=== PATIENT | female | born 1960 | race Caucasian/White ===

== ENCOUNTER 2020-10-30 21:46 | Inpatient (IN) | payer OTHER ==
[2020-10-30] VITALS (32 sets, daily range): BP systolic 140–159; BP diastolic 94–118; PULSE 128–148; O2SAT 98–100
[~2020-10-30] VITALS: Ht 162.6 cm; Wt 87.2 kg
--- NOTE | 2020-10-30 22:25 | NUR ---
Arrived to the unit via EMS. Patient alert and oriented upon arrival. Able to self-transfer over to ICU bed independently but did become dyspneic and and only able to speak in short sentences for a few minutes afterwards. 02 100% on 2L. Hospitalist at bedside to assess patient. Patient able to answer all questions appropriately.
[2020-10-30] MEDS ORDERED: COZAAR100 MG PO (23:16)
[2020-10-30] MEDS ORDERED: ALDACTONE 25MG25 M1 PO (23:16)
[2020-10-30] MEDS ORDERED: APRESOLINE50 MG PO (23:16)
--- NOTE | 2020-10-30 23:20 | NUR ---
Transported to CT via ICU bed. Tolerated well except with a few dyspneic episodes after tranfering on and off of CT cot.
[2020-10-30 23:37] LABS: C-REACTIVE PROTEIN 0.9 mg/dL (0.0-0.9)
[2020-10-30 23:46] LABS: TROPONIN-I < 0.012 ng/mL (0.000-0.035)
[2020-10-31] VITALS (586 sets, daily range): BP systolic 93–150; BP diastolic 69–121; PULSE 119–139; TEMP 97.3–98; O2SAT 79–100
--- NOTE | 2020-10-31 01:18 | NUR ---
HR continues to be 130's to 140's afib despite being almost maxed on esmolol drip. Dr. Gomez notified; instructed to give 0.25 mg of Digoxin once now.
--- NOTE | 2020-10-31 03:36 | NUR ---
Patient arrived to the unit via EMS with Esmolol drip rate at 50 mcg/kg/min.
--- NOTE | 2020-10-31 04:00 | NUR ---
HR ranging 110-130's and briefly into the 140's. Patient reports feeling "better" and BP has been stable. Dr. Gomez notified; no further orders given at this time; She will see patient in the morning.
[2020-10-31] MEDS ORDERED: ONE-A-DAY ESSE1 EACH PO (04:09)
[2020-10-31] MEDS ORDERED: OMEGA-3 1000 MG1 CAP (04:10)
[2020-10-31] MEDS ORDERED: VITAMIN D31000 I1 PO (04:10)
[2020-10-31] MEDS ORDERED: GARLIC100 MG (04:11)
[2020-10-31 05:20] LABS: BASO % 0.6 % (0.0-2.0); EOS % 0.3 % (0-4.0); GRAN # 4.9 (1.4-6.5); GRAN % 75.4 % (42.2-75.2); HEMATOCRIT 38.3 % (37.0-47.0); HEMOGLOBIN 12.7 g/dl (12.5-16.0); LYMPH # 1.1 (1.2-3.4); LYMPH % 16.2 % (20.0-51.0); MEAN CELL VOLUME 96 fl (80.0-100.0); MEAN CORPUSCULAR HEMOGLOBIN 32 pg (27.0-31.0); MEAN CORPUSCULAR HGB CONC 33 g/dl (33.0-37.0); MEAN PLATELET VOLUME 12.4 fl (7.4-10.4); MONO # 0.5 (0.1-0.6); PLATELET COUNT 194 K/mm3 (130-400); RED BLOOD COUNT 3.99 M/mm3 (4.10-5.30)
[2020-10-31 05:22] LABS: MUCOUS Present /lpf; PH 6 (5-8); SQUAMOUS EPITHELIAL None Seen /hpf; URINE APPEARANCE Clear; URINE BACTERIA None Seen /hpf; URINE BILIRUBIN Negative (NEGATIVE); URINE BLOOD 1+ (NEGATIVE); URINE COLOR Straw; URINE GLUCOSE Negative (NEGATIVE); URINE KETONE Negative (NEGATIVE); URINE LEUKOCYTE ESTERASE Negative (NEGATIVE); URINE NITRATE Negative (NEGATIVE); URINE PROTEIN(semi-quant) Negative (NEGATIVE); URINE UROBILINOGEN Negative (NEGATIVE)
[2020-10-31 05:33] LABS: ANION GAP 10 mmol/L (7-16); BLOOD UREA NITROGEN 21 mg/dL (7-17); CALCIUM 8.6 mg/dL (8.4-10.2); CARBON DIOXIDE 24 mmol/L (22-30); CHLORIDE 106 mmol/L (98-107); CHOLESTEROL 175 mg/dL (120-200); CHOLESTEROL RISK RATIO 4.8; CREATININE, serum 0.88 (0.52-1.25); GLUCOSE 104 mg/dL (74-106); HDL CHOLESTEROL 36 mg/dL; LDL CHOLESTEROL 121 mg/dL; POTASSIUM 3.8 mmol/L (3.4-5.0); SODIUM 139 mmol/L (137-145); TRIGLYCERIDE 90 mg/dL
[2020-10-31 05:50] LABS: TROPONIN-I 6 HR POST INITIAL < 0.012 ng/mL (0.000-0.034)
--- NOTE | 2020-10-31 07:00 | NUR ---
RECEIVED REPORT FORM ANMOL VICENTE. PT RESTING EASILY ON 3L VIA NC. HR NOTED AFIB 100-140s. ALL OTHER VSS. CALL LIGHT WITHIN REACH. FC PATENT AND DRAINING TO GRAVITY. PT DENIES ANY CP/PRESSURE AT THIS TIME.
[2020-10-31 08:46] LABS: COLLECTION METHOD CLEAN CATCH
--- NOTE | 2020-10-31 08:50 | NUR ---
DR GONZALES AT BEDSIDE FOR ASSESSMENT. PHYSICIAN STATES IS GOING TO READ ECHO AND THEN WILL LET RN KNOW POC FOR EITHER CATH OR LIZETH/CARDIOVERSION. PT AWARE OF POTENTIAL POCs.
--- NOTE | 2020-10-31 09:22 | NUR ---
SHUBHAM met with the patient to discuss discharge plan. The patient lives in [place] with her , Drew (ph#[phone]). She reports independence with ADLs and does not have any DME. The patient receives primary care at [facility] and she also receives her medications from there. The patient is listed as self pay. The patient states that she does have insurance through [employer]. The patient provided SHUBHAM with a copy of her ID card. SHUBHAM notified Lena with [employer] of the patient's ID number. The patient does not have a DPOA-HC, but she was interested in obtaining a form. SHUBHAM provided. The patient plans to return home with her upon discharge. SHUBHAM contacted and reviewed d/c plan with the patient's , Drew. Drew reports no concerns with the patient returning back home upon discharge. SW to follow as needed.
[2020-10-31 09:27] LABS: POTASSIUM 4.1 mmol/L (3.4-5.0)
--- NOTE | 2020-10-31 09:35 | NUR ---
DR GONZALES BACK TO BEDSIDE DISCUSSING POC WITH PT AND FAMILY ON THE PHONE. PHYSICIAN STATES PT WILL HAVE A HEART CATH WITH LIZETH/CARDIOVERSION TOMORROW IF NECESSARY AND WILL TRY AND RATE CONTROL UNTIL THEN. NEW ORDERS RECEIVED.
--- NOTE | 2020-10-31 17:47 | NUR ---
NOTIFIED DR GONZALES ABOUT PT'S HR IS STAYING CONSISTENTLY 120-160s AND THE PO DIGOXIN GIVEN EARLIER ONLY LASTED ABOUT [address] ASKS BP 91/76. PHYSICIAN STATES AT 6 HOURS AFTER THE LAST DOSE OF DIGOXIN, CAN REPEAT DOSE X1 AND WILL HOPEFULLY HOLD PT D/T LOW EF UNTIL MORNING WHEN SHE GETS HER CATHETERIZATION.
--- NOTE | 2020-10-31 19:30 | NUR ---
Received report from ANMOL Starr. Patient resting quietly in recliner watching television. HR 120-140s, in afib. BPs 90s/70s. Other vitals within normal limits. Patient reports dull chest pain rated 4/10; denies needing PRN pain medication for relief. No further needs noted at this time.
--- NOTE | 2020-10-31 20:07 | NUR ---
Contacted Dr. Victoria regarding patient's HR ranging 120-150s in afib. Patient reports mild aching chest pain, rated 4/10. Received orders to administer an additional dose of 0.25mg PO digoxin. Morphine 2mg Q 2HR IV PRN ordered for pain management. To notify again if HR sustains 140 or greater.
[2020-10-31 20:18] LABS: PARTIAL THROMBOPLASTIN TIME 31.3 SECONDS (26.0-37.0)
[2020-11-01] VITALS (613 sets, daily range): BP systolic 99–137; BP diastolic 66–99; PULSE 14–140; TEMP 97.3–98; O2SAT 46–100
[2020-11-01 03:16] LABS: BASO % 0.6 % (0.0-2.0); EOS # 0.1 (0.0-0.7); GRAN # 5.8 (1.4-6.5); GRAN % 81.8 % (42.2-75.2); HEMATOCRIT 38.6 % (37.0-47.0); HEMOGLOBIN 12.9 g/dl (12.5-16.0); LYMPH # 0.8 (1.2-3.4); LYMPH % 10.7 % (20.0-51.0); MEAN CELL VOLUME 96 fl (80.0-100.0); MEAN CORPUSCULAR HEMOGLOBIN 32 pg (27.0-31.0); MEAN CORPUSCULAR HGB CONC 33 g/dl (33.0-37.0); MEAN PLATELET VOLUME 12.2 fl (7.4-10.4); MONO # 0.4 (0.1-0.6); MONO % 5.5 % (1.7-9.3); PLATELET COUNT 197 K/mm3 (130-400); RED BLOOD COUNT 4.01 M/mm3 (4.10-5.30); REDCELL DISTRIBUTION WIDTH-CV 13.9 % (11.5-14.5)
[2020-11-01 03:25] LABS: INR 1.2 (0.8-3.0)
[2020-11-01 03:27] LABS: ALBUMIN 3.4 gm/dL (3.5-5.0); BILIRUBIN,TOTAL 0.3 mg/dL (0.0-1.0); CALCIUM 8.3 mg/dL (8.4-10.2); CREATININE, serum 1.12 (0.52-1.25); POTASSIUM 3.7 mmol/L (3.4-5.0); TOTAL PROTEIN 5.8 gm/dL (6.4-8.2)
[2020-11-01 03:28] LABS: PARTIAL THROMBOPLASTIN TIME 81.7 SECONDS (26.0-37.0)
--- NOTE | 2020-11-01 07:35 | NUR ---
Report given to ANMOL Starr.
--- NOTE | 2020-11-01 07:35 | NUR ---
RECEIVED REPORT FROM ANMOL LYNN. PT SLEEPING. VSS. HR NOTED AFIB 110-140s. FC PATENT AND DRAINING TO GRAVITY. SEE GTT FLOWSHEET. CALL LIGHT WITHIN REACH. PT ON 1L VIA MA.
--- NOTE | 2020-11-01 10:56 | NUR ---
DR RILEY AT BEDSIDE FOR ASSESSMENT. NEW ORDERS RECEIVED. STILL TO PERFORM CATH PROCEDURE WITH POSSIBLE CARIOVERSION IF NECESSARY AT THAT TIME TODAY.
--- NOTE | 2020-11-01 13:18 | NUR ---
SEE MERGE DOCUMENTATION FOR MEDICAITON ADMINISTRATION TIMES AND INTRA/POST PROCEDURE SEDATION ASSESSMENTS. HEPARIN GTT STOPPED PRIOR TO PT ARRIVAL TO HEAD COACH PER MD REQUEST. PLAN FOR LHC FIRST, THEN LIZETH/CV.
--- NOTE | 2020-11-01 14:10 | NUR ---
PT TO ADOPTION COORDINATOR WITH ANMOL PAUL AT 1214. REPORT RECIEVED FROM ANMOL PAUL AT THIS TIME. AWAITING ARRIVAL OF PT BACK FROM ADOPTION COORDINATOR.
--- NOTE | 2020-11-01 14:23 | NUR ---
PT ARRIVES VIA STRETCHER BACK FROM POLITICAL REPORTER WITH ANMOL PAUL. VSS. HR 43-56. PER REPORT, DR RILEY IS AWARE AND IS FINE WITH HR THAT LOW. TR BAND IN PLACE, PER REPORT, NO AIR HAS BEEN RELEASED AT THIS TIME. PT AAOX4. CALL LIGHT WITHIN REACH. FC PATENT AND DRAINING TO GRAVITY. NOTED PT'S COLORING TO HAVE IMPROVED AND IS NO LONGER PALE AND DIAPHORETIC AT THIS TIME. PT DENIES ANY CP/PRESSURE. SEE GTT FLOWSHEET FOR CHANGES MADE FROM POLITICAL REPORTER TO RETURNING BACK TO ICU.
--- NOTE | 2020-11-01 19:30 | NUR ---
Received report from ANMOL Starr. Pumps and lines confirmed at bedside. Patient is resting quietly in bed. All vitals within normal limits. She denies any pain or discomfort. Right radial access site is clean, dry, and intact, and is soft and without bruising or hematoma formation. All pulses palpable. No further needs noted at this time.
[2020-11-02] VITALS (560 sets, daily range): BP systolic 97–155; BP diastolic 73–98; PULSE 47–66; TEMP 97.3–98.6; O2SAT 86–100
--- NOTE | 2020-11-02 07:20 | NUR ---
Report given to ANMOL Navarro.
[2020-11-02 07:45] LABS: BASO % 0.4 % (0.0-2.0); EOS # 0.1 (0.0-0.7); EOS % 1.4 % (0-4.0); GRAN % 70.5 % (42.2-75.2); HEMATOCRIT 38.5 % (37.0-47.0); HEMOGLOBIN 12.7 g/dl (12.5-16.0); LYMPH % 18.3 % (20.0-51.0); MEAN CELL VOLUME 98 fl (80.0-100.0); MEAN CORPUSCULAR HEMOGLOBIN 32 pg (27.0-31.0); MEAN CORPUSCULAR HGB CONC 33 g/dl (33.0-37.0); MEAN PLATELET VOLUME 12.2 fl (7.4-10.4); MONO # 0.5 (0.1-0.6); MONO % 9.2 % (1.7-9.3); PLATELET COUNT 187 K/mm3 (130-400); RED BLOOD COUNT 3.93 M/mm3 (4.10-5.30); REDCELL DISTRIBUTION WIDTH-CV 14.2 % (11.5-14.5)
[2020-11-02 08:00] LABS: CALCIUM 8.5 mg/dL (8.4-10.2); CREATININE, serum 0.9 (0.52-1.25); POTASSIUM 3.3 mmol/L (3.4-5.0)
--- NOTE | 2020-11-02 13:30 | NUR ---
Indwelling sainz removed per MD orders. 8ML fluid removed from balloon, no issues. Patient educated on using call moore for help ambulating to bathroom. Will monitor.
--- NOTE | 2020-11-02 16:00 | NUR ---
Bed bath provided to patient. made aware of new room number and visiting hours. All questions answered.
--- NOTE | 2020-11-02 16:45 | NUR ---
Report called to Medical RN, all questions answered. Patient to be transfered via wheel chair to floor.
--- NOTE | 2020-11-02 18:15 | NUR ---
Patient brought up to 353 via wheel chair all belongings in hand. RN notified that transport was late due to emergency in unit. RN at bedside. Patient placed sitting up in recliner.
--- NOTE | 2020-11-02 18:25 | NUR ---
Patient arrived to the floor at this time. She is alert, oriented, and stable at this time. Lung sounds are clear. Heart sounds normal, rate irregular but no tachicardia present. Mild edema in BLE, +1. Right radial site is CD&I with bandaid, site is sensetive to touch tough. No SOB at this time. Patient is aware that we are waiting for her to urinate after having her sainz removed. She questioned whether our help was necessary. I requested that she call for a stand by assist due to new heart medications and that we have not witnessed her ambulate, she agreed and understood. Pulses are all intact. Only request was juice at this time, this was provided. Patient denies other needs. Will continue to monitor. Call light is in reach.
--- NOTE | 2020-11-02 20:45 | NUR ---
Sitting in recliner. Assessment complete. Lungs clear. Heart sounds irregular. Bowels active x4. Pulses present throughout. Bilateral lower extremity edema +1. INT right AC flushed without complications. Patient has erythema/pain/swelling/palpatable streak in left AC at a former INT site. Patient arm elevated and warm compress applied. Denies other needs at this time. Call light in reach.
--- NOTE | 2020-11-03 00:09 | NUR ---
Resting in bed. Denies needs. Call light in reach.
--- NOTE | 2020-11-03 01:39 | NUR ---
Up to restroom. Denies needs. Call light in reach.
[2020-11-03 03:03] VITALS: BP 126/74; PULSE 65; TEMP 98.7
--- NOTE | 2020-11-03 04:21 | NUR ---
Resting in bed. Denies needs. Call light in reach.
[2020-11-03 07:06] LABS: CALCIUM 8.4 mg/dL (8.4-10.2); CREATININE, serum 0.69 (0.52-1.25); POTASSIUM 3.3 mmol/L (3.4-5.0)
--- NOTE | 2020-11-03 07:14 | NUR ---
Report given to ANMOL Viera
[2020-11-03 08:10] VITALS: BP 123/67; PULSE 71; TEMP 97.9
--- NOTE | 2020-11-03 08:30 | NUR ---
Assessment complete. PAtient sitting up in recliner eating breakfast at this time. States that she feels good this morning. Minor discomfort in left AC area due to IV infiltration of unknown medication at previous hospital. This area is red, swollen, firm and achey to the patient, she does state that it has improved since overnight. Warm compress and elevation were used overnight. Right radial site is CD&I, less tender than it was yesterday. Otherwise no complaints of pain or discomfort. Patient remains independent in the room and is doing very well. No other needs were expressed at this time. CAll light is in reach.
--- NOTE | 2020-11-03 10:30 | NUR ---
SW met with patient's RN. Patient is on second day of PO amiodarone. Patient will not discharge today 11/03. There are no new needs at this time. Social work will continue to follow.
[2020-11-03 11:46] VITALS: BP 118/89; PULSE 62; TEMP 98.8
[2020-11-03 16:22] VITALS: BP 133/83; PULSE 62; TEMP 97.5
--- NOTE | 2020-11-03 17:31 | NUR ---
Patient has had an uneventful shift. Very minimal needs. Left arm remains red, puffy and warm from previous infiltration, wbc remains stable. Warm compress provided for relief. Otherwise patient is comfortable and aware of her POC. Will continue to monitor. Call light is in reach.
[2020-11-03 19:16] VITALS: BP 118/70; PULSE 61; TEMP 98.6
[2020-11-03 20:15] LABS: BASO % 0.4 % (0.0-2.0); EOS # 0.1 (0.0-0.7); EOS % 1.2 % (0-4.0); GRAN # 8.1 (1.4-6.5); HEMATOCRIT 42.8 % (37.0-47.0); HEMOGLOBIN 14.6 g/dl (12.5-16.0); LYMPH % 9.4 % (20.0-51.0); MEAN CELL VOLUME 95 fl (80.0-100.0); MEAN CORPUSCULAR HEMOGLOBIN 32 pg (27.0-31.0); MEAN CORPUSCULAR HGB CONC 34 g/dl (33.0-37.0); MONO # 0.9 (0.1-0.6); MONO % 8.5 % (1.7-9.3); PLATELET COUNT 211 K/mm3 (130-400); RED BLOOD COUNT 4.53 M/mm3 (4.10-5.30)
--- NOTE | 2020-11-03 20:15 | NUR ---
Patient A/Ox4. Patient sitting up in the chair and resting upon shift start. Noticed left upper arm red, swollen, and pain to touch. Patient reported left arm IV was infiltrated on last Wednesday when she was in ICU and got red and swollen since then. Called Hospitalist DIOGENES Hodge to assess left arm at 19:40 pm. DIOGENES Hodge came and assessed patient's left arm. Gave order for blood draw for CBC, blood culture, and Doxycycline. Doxycyxline PO given. All scheduled meds given at this time. Right AC IV site has no s/s of complications. Call light within reach. Patient denies further needs at this time.
[2020-11-03 23:39] VITALS: BP 139/73; PULSE 59; TEMP 98.5
[2020-11-04 04:39] VITALS: BP 140/78; PULSE 53; TEMP 98.2
[2020-11-04 06:50] LABS: CALCIUM 8.9 mg/dL (8.4-10.2); CREATININE, serum 0.82 (0.52-1.25); POTASSIUM 3.9 mmol/L (3.4-5.0)
--- NOTE | 2020-11-04 07:00 | NUR ---
Report received form ANMOL Bauman. Pt in bed resting, denies needs will continue to monitor.
[2020-11-04 08:00] VITALS: BP 113/88; PULSE 66; TEMP 97.7
[2020-11-04] MEDS ORDERED: ELIQUIS 5MG PO (11:13)
[2020-11-04] MEDS ORDERED: DOXYCYCLINE 10100 MG PO (11:13)
[2020-11-04] MEDS ORDERED: CORDARONE200 MG/TAB PO (11:20)
[2020-11-04] MEDS ORDERED: COREG 6.256.25 MG/TA PO (11:20)
[2020-11-04] MEDS ORDERED: LASIX 40MG TABL40 MG PO (11:21)
[2020-11-04] MEDS ORDERED: ENTRESTO 24 MG1 EACH PO (11:21)
--- NOTE | 2020-11-04 11:28 | NUR ---
Assessment charted. Notified by US that probable DVT to L cephalic, notified Dr. Carson. Pt has sensitivity to LUE. REsting in bed or chair, up ad heavenly in room. INT to RFA is also chording and appears red, will remove. Will continue to monitor.
[2020-11-04 12:46] VITALS: BP 102/70; PULSE 54; TEMP 97.4
--- NOTE | 2020-11-04 12:48 | NUR ---
First visit from the customer service receptionist. No needs right now.
--- NOTE | 2020-11-04 14:03 | NUR ---
DIscharge packet completed with pt at this time. PT received dishcarge packet, f/u appts, new scripts sent to pharmacy and reviewed recommendations for care of clot in LUE. INT dc'd, tip intact to RFA. PT changing clothes, en route here, will leave via w/c with all belongings and will be escorted out by medical staff. Criteria met.
== END 2020-11-04 14:30 | disposition home or self-care (01) | DRG 286 ==
LOC: ICU 21:46 → MEDICAL 11-02 19:19
PROVIDERS: Hospitalist; Internal Medicine Cardiovascular Disease; Nurse Practitioner Family; Student in an Organized Health Care Education/Training Program; ADMIT Student in an Organized Health Care Education/Training Program
PROC: 4A023N7 Measurement of Cardiac Sampling and Pressure, Left Heart, Percutaneous Approach (ICD-10-PCS; principal; 2020-11-01)
PROC: B2111ZZ Fluoroscopy of Multiple Coronary Arteries using Low Osmolar Contrast (ICD-10-PCS; 2020-11-01)
PROC: 5A2204Z Restoration of Cardiac Rhythm, Single (ICD-10-PCS; 2020-11-01)
DX: I48.91 Unspecified atrial fibrillation (principal); I50.23 Acute on chronic systolic (congestive) heart failure; I82.612 Acute embolism and thrombosis of superficial veins of left upper extremity; L03.114 Cellulitis of left upper limb; I16.1 Hypertensive emergency; I11.0 Hypertensive heart disease with heart failure; E78.5 Hyperlipidemia, unspecified; E87.6 Hypokalemia; D25.9 Leiomyoma of uterus, unspecified; E83.42 Hypomagnesemia; N83.201 Unspecified ovarian cyst, right side; N32.3 Diverticulum of bladder; R74.01 Elevation of levels of liver transaminase levels; Q63.1 Lobulated, fused and horseshoe kidney; Z86.718 Personal history of other venous thrombosis and embolism; Z87.442 Personal history of urinary calculi; Z88.0 Allergy status to penicillin; Z88.1 Allergy status to other antibiotic agents; Z87.891 Personal history of nicotine dependence
CPT/HCPCS: 99223-AI; 99231-AI; 99232-AI; 99239; J0282; J1160; J1644; J1650; J1940; J2250; J2270; J2550; J2704; J3010; J3475; J3480; J7060; Q9967

== ENCOUNTER 2022-04-27 09:19 | Inpatient (IN) | payer OTHER ==
[~2022-04-27] VITALS: Ht 160 cm; Wt 97.7 kg
[~2022-04-27 09:19] MED LIST: ALDACTONE 25MG25 M1 PO; APRESOLINE50 MG PO; CORDARONE200 MG/TAB PO; COREG 6.256.25 MG/TA PO; COZAAR100 MG PO; DOXYCYCLINE 10100 MG PO; ELIQUIS 5MG PO; ENTRESTO 24 MG1 EACH PO; GARLIC100 MG; LASIX 40MG TABL40 MG PO; OMEGA-3 1000 MG1 CAP; ONE-A-DAY ESSE1 EACH PO; VITAMIN D31000 I1 PO
[2022-04-27 09:42] LABS: BASO # 0.1 K/mm3 (0.0-0.2); BASO % 1.1 % (0.0-2.0); EOS # 0.1 K/mm3 (0.0-0.7); EOS % 1.6 % (0.0-4.0); GRAN % 72.2 % (42.2-75.2); HEMATOCRIT 41.6 % (37.0-47.0); HEMOGLOBIN 14.4 g/dl (12.5-16.0); LYMPH # 1.2 K/mm3 (1.2-3.4); LYMPH % 17.5 % (20.0-51.0); MEAN CELL VOLUME 93 fl (80.0-100.0); MEAN CORPUSCULAR HEMOGLOBIN 32 pg (27-31); MEAN CORPUSCULAR HGB CONC 35 g/dl (33.0-37.0); MEAN PLATELET VOLUME 11.8 fl (7.4-10.4); MONO # 0.5 K/mm3 (0.1-0.6); MONO % 7.3 % (1.7-9.3); PLATELET COUNT 228 K/mm3 (130-400); RED BLOOD COUNT 4.47 M/mm3 (4.10-5.30); REDCELL DISTRIBUTION WIDTH-CV 13.7 % (11.5-14.5)
[2022-04-27] MEDS ORDERED: COZAAR100 MG (09:52)
[2022-04-27 09:54] LABS: INR 1.6 (0.8-3.0); PROTHROMBIN TIME 18.1 SECONDS (9.7-12.8)
[2022-04-27 09:57] LABS: PARTIAL THROMBOPLASTIN TIME 35.2 SECONDS (26.0-37.0)
[2022-04-27 10:08] LABS: ALANINE AMINOTRANSFERASE 238 U/L (0-55); ALBUMIN 3.7 gm/dL (3.4-4.8); ALKALINE PHOSPHATASE 176 U/L (40-150); ANION GAP 13 mmol/L (7-16); AST,SGOT 86 U/L (5-34); BILIRUBIN,TOTAL 1.2 mg/dL (0.2-1.2); BLOOD UREA NITROGEN 21 mg/dL (10-20); CALCIUM 9.1 mg/dL (8.4-10.2); CARBON DIOXIDE 20 mmol/L (23-31); CHLORIDE 108 mmol/L (98-107); CREATININE, serum 0.83 mg/dL (0.57-1.11); GLUCOSE 127 mg/dL (70-99); POTASSIUM 3.9 mmol/L (3.5-4.5); SODIUM 141 mmol/L (136-145); TOTAL PROTEIN 6.9 gm/dL (6.2-8.1)
[2022-04-27 10:19] LABS: TROPONIN-I < 0.010 ng/mL (0.00-0.033)
[2022-04-27 13:52] VITALS: BP 136/108; PULSE 52; TEMP 98.2
[2022-04-27 15:43] VITALS: BP 117/78; PULSE 54; TEMP 98
--- NOTE | 2022-04-27 15:52 | NUR ---
Opinion Polls Survey Worker met with patient to discuss discharge planning. Patient lives in [place] with her , Drew (ph#[phone]) and goes to [facility] for primary care and medications. Patient does not use DME and is independent with ADLS. Patient does not have Advance Directives and is not interested in completing DPOA-HC at this time. Patient plans to return home at time of discharge. Discharge Plan: Home
--- NOTE | 2022-04-27 18:00 | NUR ---
Patient admitted to room 318 from ER. Pharmacy, allergies, and medications reviewed. Admission paperwork completed. VSS. Patient A&O. Patient denies any pain, discomfort, SOA, or further needs at this time. Call light in reach. DIOGENES Hodge informed that patient self caths at home, this RN was instructed that she is ok to continue to do that on the floor. Nursing order placed.
[2022-04-27 20:59] VITALS: BP 137/106; PULSE 74; TEMP 97.6
--- NOTE | 2022-04-27 22:47 | NUR ---
PT'S QTC INCREASED TO 527. NOTIFIED DR. RILEY OF THE PT'S QTC AND CURRENT HR. PT WAS RUNNING IN THE UPPER 50'S AND 60'S, NSR. PER DR. RILEY'S VERBAL PHONE READBACK ORDER I WAS GIVEN A VERBAL ORDER TO HOLD THE ORDERED PO SOTALOL FOR TONIGHT. ORDERS FOLLOWED PER PROVIDER, NO OTHER CHANGES AT THIS TIME.
[2022-04-28] VITALS (7 sets, daily range): BP systolic 127–141; BP diastolic 84–97; PULSE 68–102; TEMP 97.4–98.2
--- NOTE | 2022-04-28 03:10 | NUR ---
Pt alert and oriented. Follows commands. Steady gate, independent in room. Denies chest pain/SOB/acute pain at this time. Vital signs stable. On room air. HR between sinus rythym and sinus go. Afebrile. Pt's last QTC was 527. Notified Dr. Huerta of the result, and the PO sotolol for 2100 was held. Pt tolerating PO. quality assurance monitor final on. Pt states she self-catheterizes and brought her own supplies. DIOGENES Hodge was made aware by day shift nurse and was okay with pt self-catheterizing herself. Nursing notification was made. Shift assessment performed. Medications administered per orders and education provided. No significant skin issues noted. Pt does not report any questions at this time. Bed low and locked, call moore within reach. No concerns at this time.
--- NOTE | 2022-04-28 07:32 | NUR ---
NO ADVERSE EVENTS OVERNIGHT. PT ALERT AND ORIENTED. DENIES CHEST PAIN/SOB. HR IN THE 60'S-70'S. VS STABLE. PT CATHETERIZES SELF, NURSING ORDER IN PLACE. BED LOW AND LOCKED, CALL RAYMOND WITHIN REACH. NO CONCERNS AT THIS TIME.
--- NOTE | 2022-04-28 08:00 | NUR ---
Pt sitting down. Shift assessment completed. A&O x4. VSS. Pt denies pain, N/V, SOB, or any other disconfort. Right hand INT CDI, no edema or redness. Pt requested to ambulate in the hallway. Call light within reach.
--- NOTE | 2022-04-28 10:07 | NUR ---
Initial visit; Patient thanked Insurance Sales Representative for looking in on her and offering prayer and God's blessings. Radha being a smiling, happy person caused Insurance Sales Representative to comment on how her wonderful outlook will continue to help her heal. She smiled and thanked Insurance Sales Representative.
--- NOTE | 2022-04-28 12:10 | NUR ---
CHF- Reviewed education for chronic heart failure. Reviewed [facility] CHF educational booklet, with emphasis on daily weights, obtaining dry weights, monitoring for edema, shortness of breath, decreased endurance, or feeling full when eating less. Reviewed importance of medication compliance with all prescribed medications and when to call your medical provider (CHF Zones). Patient verbalized understanding. Patient s EF is 30-35% which does qualify for Cardiac Rehab. Referral was declined by pt a this time - she reports exercising at [employer] daily. CR number given if questions arrise - pt verbalized understanding.
--- NOTE | 2022-04-28 19:11 | NUR ---
Pt sitting down in her bed. A&O x4. VSS Follow up education on her medication. Pt expressed feeling itchiness on her chest due to telemetry leads. Pt denied any other concerns. Pt independent, ambulated on hallway a few times during the day. INT on right hand CDI no redness or edema. Tele on. call light within reach.
--- NOTE | 2022-04-28 22:52 | NUR ---
Pt alert and oriented. Follows commands, independent in room, steady gait. Pt self catheterizes, approved by provider. Nursing notification in place. Pt denies chest pain/SOB. awake overnight monitor on. Pt ambulated out in hallway this evening. Pt continuing with ordered sotalol this evening. Shift assessment performed. Medications administered per orders and education provided. VS stable. No significant skin issues noted. On room air. Tolerating PO. Pt does not report any questions at this time. Bed low and locked, call moore within reach. No concerns at this time.
[2022-04-29 03:54] VITALS: BP 138/86; PULSE 76; TEMP 97.9
--- NOTE | 2022-04-29 05:21 | NUR ---
No adverse events overnight. Pt alert and oriented. Independent in the room. Self catheterizes. VS stable. HR running between sinus rythym and sinus go. Pt denies chest pain/SOB. Tolerating PO. classroom monitor on. Bed low and locked, call moore within reach. No new concerns at this time.
[2022-04-29 06:40] LABS: BASO % 0.9 % (0.0-2.0); EOS # 0.2 K/mm3 (0.0-0.7); EOS % 3.7 % (0.0-4.0); GRAN # 2.7 K/mm3 (1.4-6.5); GRAN % 59.1 % (42.2-75.2); HEMATOCRIT 39.4 % (37.0-47.0); HEMOGLOBIN 12.7 g/dl (12.5-16.0); LYMPH # 1.2 K/mm3 (1.2-3.4); LYMPH % 25.3 % (20.0-51.0); MEAN CORPUSCULAR HEMOGLOBIN 32 pg (27-31); MEAN CORPUSCULAR HGB CONC 32 g/dl (33.0-37.0); MEAN PLATELET VOLUME 12.7 fl (7.4-10.4); MONO # 0.5 K/mm3 (0.1-0.6); MONO % 10.8 % (1.7-9.3); PLATELET COUNT 150 K/mm3 (130-400); RED BLOOD COUNT 3.97 M/mm3 (4.10-5.30); REDCELL DISTRIBUTION WIDTH-CV 14.1 % (11.5-14.5)
[2022-04-29 06:46] LABS: MEAN CELL VOLUME 99 fl (80.0-100.0)
[2022-04-29 07:06] LABS: ALBUMIN 3.2 gm/dL (3.4-4.8); BILIRUBIN,TOTAL 0.6 mg/dL (0.2-1.2); CALCIUM 8.5 mg/dL (8.4-10.2); CREATININE, serum 0.68 mg/dL (0.57-1.11); POTASSIUM 3.6 mmol/L (3.5-4.5); TOTAL PROTEIN 5.9 gm/dL (6.2-8.1)
[2022-04-29 07:14] VITALS: BP 132/94; PULSE 64; TEMP 97.8
--- NOTE | 2022-04-29 09:20 | NUR ---
Scheduled medications given. Shift assessment preformed. VSS. Julio A&O. Patient c/o a headache rated a 2/10, but denies the need for interventions at this time. Patient denies any further pain, discomfort, SOA, or further needs at this time. Call light in reach.
[2022-04-29 11:31] VITALS: BP 145/111; PULSE 43; TEMP 96.7
[2022-04-29 15:04] VITALS: BP 134/102; PULSE 56; TEMP 97.6
--- NOTE | 2022-04-29 18:00 | NUR ---
Provider contacted about elevated bp. Orders placed. Medications administered per orders. Remainder of vitals stable. Patient A&O. Patient denies any pain, discomfort, SOA, or further needs at this time. Call light in reach.
[2022-04-29 20:59] VITALS: BP 143/81; PULSE 67; TEMP 97.4
--- NOTE | 2022-04-29 23:30 | NUR ---
Pt alert and oriented. Follows commands. Independent in the room. Self catheterizes. Sotalol continued per orders. surveillance monitor on. VS stable. HR running between sinus rythym and sinus go. On room air. Shift assessment performed. Medications administered per orders and education provided. No significant skin issues noted. Denies chest pain/SOB. Denies acute pain. Steady gait. Bed low and locked, call moore within reach. Pt does not report any questions at this time. No no concerns at this time.
[2022-04-30 00:22] VITALS: BP 116/81; PULSE 66; TEMP 97.6
[2022-04-30 04:27] VITALS: BP 122/74; PULSE 57; TEMP 97.7
--- NOTE | 2022-04-30 05:25 | NUR ---
No adverse events overnight. Pt alert and oriented. Denies chest pain/SOB at this time. Independent in the room. VS stable. On room air. night monitor on. HR running between normal sinus and sinus go. Sotalol administered per orders. Bed low and locked, call moore within reach. No new concerns at this time.
[2022-04-30 06:49] LABS: BASO # 0.1 K/mm3 (0.0-0.2); BASO % 1.2 % (0.0-2.0); EOS # 0.2 K/mm3 (0.0-0.7); EOS % 3.5 % (0.0-4.0); GRAN # 3.1 K/mm3 (1.4-6.5); GRAN % 60.3 % (42.2-75.2); HEMATOCRIT 40.3 % (37.0-47.0); HEMOGLOBIN 13.7 g/dl (12.5-16.0); LYMPH # 1.2 K/mm3 (1.2-3.4); LYMPH % 22.7 % (20.0-51.0); MEAN CORPUSCULAR HEMOGLOBIN 32 pg (27-31); MEAN CORPUSCULAR HGB CONC 34 g/dl (33.0-37.0); MEAN PLATELET VOLUME 12.2 fl (7.4-10.4); MONO # 0.6 K/mm3 (0.1-0.6); MONO % 12.1 % (1.7-9.3); PLATELET COUNT 210 K/mm3 (130-400); RED BLOOD COUNT 4.28 M/mm3 (4.10-5.30); REDCELL DISTRIBUTION WIDTH-CV 13.7 % (11.5-14.5)
[2022-04-30 06:54] LABS: MEAN CELL VOLUME 94 fl (80.0-100.0)
[2022-04-30 07:02] LABS: CALCIUM 9.2 mg/dL (8.4-10.2); CREATININE, serum 0.77 mg/dL (0.57-1.11); POTASSIUM 3.5 mmol/L (3.5-4.5)
[2022-04-30 07:38] VITALS: BP 140/92; PULSE 57; TEMP 98.2
--- NOTE | 2022-04-30 08:36 | NUR ---
Patient alert and oriented, sitting in window couch eating breakfast during assessment. No complaints of pain, SOB, difficulty breathing or difficulty with urination/bowel movements. Patient has order for self-cath, has her own supplies and manages well, due to horseshoe kidney and retention. QTc 510 this morning, per RN. Godwin, with Cardiology, hold Sotolol till reviewed by Dr. Huerta. Meds taken whole with water. No concerns for falls, no needs at this time. Patient with call moore in reach, independent in her room.
[2022-04-30] MEDS ORDERED: TAMBOCOR 1100 MG/TAB PO (11:42)
[2022-04-30] MEDS ORDERED: ELIQUIS 5MG PO (11:43)
[2022-04-30] MEDS ORDERED: COREG 6.256.25 MG/TA PO (11:44)
[2022-04-30 11:56] VITALS: BP 131/102; PULSE 64; TEMP 98.1
== END 2022-04-30 16:05 | disposition home or self-care (01) | DRG 310 ==
LOC: COL.ER 09:19 → MEDICAL 10:57
PROVIDERS: Emergency Medicine; Physician Assistant; ADMIT Internal Medicine
PROC: 5A2204Z Restoration of Cardiac Rhythm, Single (ICD-10-PCS; principal; 2022-04-27)
DX: I48.19 Other persistent atrial fibrillation (principal); I10 Essential (primary) hypertension; I42.8 Other cardiomyopathies; I08.3 Combined rheumatic disorders of mitral, aortic and tricuspid valves; R94.5 Abnormal results of liver function studies; E78.5 Hyperlipidemia, unspecified; Q63.1 Lobulated, fused and horseshoe kidney; Z86.718 Personal history of other venous thrombosis and embolism; Z88.1 Allergy status to other antibiotic agents; Z88.8 Allergy status to other drugs, medicaments and biological substances; Z87.442 Personal history of urinary calculi; Z79.01 Long term (current) use of anticoagulants
CPT/HCPCS: 99239; J1940; J2250; J3010; J3475